=== PATIENT | male | born 1995 | race Two or more races ===

== ENCOUNTER 2019-04-20 17:29 | Emergency (ER) | payer SELFPAY ==
[~2019-04-20] VITALS: Ht 182.9 cm; Wt 90.0 kg
[2019-04-20 17:52] VITALS: BP 142/80
--- NOTE | 2019-04-20 18:55 | NUR ---
PT AND FAMILY UPDATED ON POC INCLUDING PENDING TESTS AND CHART REVIEW BY ER[facility], DENIED ANY NEEDS AT THIS TIME.
--- NOTE | 2019-04-20 19:57 | NUR ---
REVIEWED DISCHARGE INSTRUCTIONS W/ PT, VERBALIZED UNDERSTANDING TO INFORMATION PROVIDED INCLUDING FOLLOW UP CARE AND RETURN PRECAUTIONS, DENIED QUESTIONS/CONCERNS. PT AMBULATED FROM ED W/ FAMILY MEMBER, DENIED DIFFICULTY BREATHING OR SWALLOWING AT TIME OF DISCHARGE.
== END 2019-04-20 20:00 | disposition home or self-care (01) ==
LOC: ED 18:50
DX: J00 Acute nasopharyngitis [common cold] (principal); B34.9 Viral infection, unspecified
CPT/HCPCS: 71046; 87081; 87880; 99284